=== PATIENT | female | born 1975 | race Caucasian/White ===

== ENCOUNTER 2018-04-21 18:43 | Emergency (ER) | payer OTHER ==
[2018-04-21] MEDS ORDERED: IBUPROFEN 600 MG TABLET PO ONE (18:56)
--- NOTE | 2018-04-21 19:00 | Emergency Department Record ---
History of Present Illness - General Chief Complaint: Knee injury Stated Complaint: RT KNEE INJURY Time Seen by Provider: 04/21/18 18:55 Source: Patient Mode of Arrival: Ambulatory Limitations: No limitations - History of Present Illness Initial Comments: 42 yo female presents with medial right knee pain. She was kick boxing and felt the pain. The right knee was the planted knee. She has pain and a feeling of instability with standing. No history of prior knee surgery or disease. No other injuries. MD Complaint: Knee injury -: Hour(s) Injury: Knee: Right Type of Injury: Other (twisting) Place: Other Severity: Moderate Improves With: Rest Worsens With: Movement, Palpation, Weight bearing Context: Other (kick boxing) Associated Symptoms: Swelling, Able to partially bear weight - Related Data Home Medications Medication Instructions Recorded Confirmed Last Taken Albuterol Sulfate [Ventolin Hfa] 1 - 2 puff IH .EVERY 4-6 HOURS PRN 04/21/18 Unknown Previous Rx's Medication Instructions Recorded Hydrocodone/Acetaminophen [[place] 1 tab PO Q6H PRN #12 tab 04/21/18 5mg/325mg] Allergies Allergy/AdvReac Type Severity Reaction Status Date / Time duloxetine [From Cymbalta] Allergy DIFFICULTY Verified 04/21/18 19:00 BREATHING erythromycin base Allergy DIARRHEA Verified 04/21/18 19:00 lidocaine Allergy HIVES Verified 04/21/18 19:00 Review of Systems Constitutional: Denies: Chills, Fever, Malaise, Weakness Eyes: Denies: Eye discharge ENT: Denies: Congestion, Epistaxis, Throat pain Respiratory: Denies: Cough, Dyspnea, Hemoptysis Cardiovascular: Denies: Chest pain, Palpitations, Syncope Endocrine: Denies: Fatigue Gastrointestinal: Denies: Abdominal pain, Diarrhea, Nausea, Vomiting Genitourinary: Denies: Dysuria, Urgency Musculoskeletal: Reports: As per HPI, Arthralgia, Myalgia. Denies: Back pain, Joint swelling Skin: Denies: Bruising, Change in color Neurological: Reports: Tingling (lateral knee). Denies: Abnormal gait, Numbness , Weakness Psychiatric: Denies: Anxiety Hematological/Lymphatic: Denies: Easy bleeding, Easy bruising Physical Exam - General General Appearance: Alert, Oriented x3, Cooperative, No acute distress Limitations: No limitations - Head Head exam: Atraumatic, Normocephalic, Normal inspection - Eye Eye exam: Normal appearance, PERRL. negative: Conjunctival injection - ENT ENT exam: Normal exam Ear exam: Normal external inspection Nasal Exam: Normal inspection Mouth exam: Normal external inspection - Neck Neck exam: Normal inspection - Respiratory Respiratory exam: Normal lung sounds bilaterally. negative: Respiratory distress - Cardiovascular Cardiovascular Exam: Regular rate, Normal rhythm, Normal heart sounds - Rectal Rectal exam: Deferred - exam: Deferred - Extremities Extremities exam: Normal inspection, Tenderness. negative: Full ROM, Joint swelling Image of Full Body: 1 - medial knee tenderness to palpation, normal inspection, patella intact, lateral knee non tender, stable in the AP direction without laxity - Back Back exam: Reports: Full ROM. Denies: CVA tenderness (R), CVA tenderness (L), Tenderness - Neurological Neurological exam: Alert, Oriented X3 - Psychiatric Psychiatric exam: Normal affect, Normal mood - Skin Skin exam: Dry, Intact, Normal color, Warm Course - Reevaluation(s) Reevaluation #1: 04/21/18 19:49 Knee XR demonstrates an effusion with a questionable medial patellar avulsion She will be immobilized, given crutches and referred to orthopedics 04/21/18 20:28 The patient requested to call her own PCP for an orthopedic referral Disposition Disposition: Discharge Clinical Impression: Patellar fracture Right knee sprain Qualifiers: Encounter type: initial encounter Involved ligament of knee: unspecified ligament Qualified Code(s): S83.91XA - Sprain of unspecified site of right knee , initial encounter Disposition: Home, Self-Care Condition: (1) Good Instructions: Knee Sprain (ED), Patellar Fracture (ED) Additional Instructions: Call your doctor for the next available follow up appointment Return to the ER for a recheck if worse, any new concerns or questions Take the prescriptions provided as directed Review this ER visit and the tests performed with your family doctor Use the crutches and brace for support and comfort Call your doctor for an orthopedic referral Prescriptions: Hydrocodone/Acetaminophen [[place] 5mg/325mg] 1 tab PO Q6H PRN #12 tab PRN Reason: Pain - General Forms: Patient Portal Access Time of Disposition: 19:51 Quality - Quality Measures Quality Measures: N/A - Blood Pressure Screening Does Patient Have Any of the Following: No Blood Pressure Classification: Pre-Hypertensive BP Reading Systolic Measurement: 136 Diastolic Measurement: 81 Screening for High Blood Pressure: < Pre-Hypertensive BP, F/U Documented > [ [id number]] Pre-Hypertensive Follow-up Interventions: Referral to alternative/primary care provider.
[2018-04-21] MEDS ORDERED: HYDROCODONE/APAP 5/325MG TABLET PO ONE (20:01)
--- NOTE | 2018-04-25 14:07 | RADIOLOGY REPORT ---
EXAM: RIGHT KNEE HISTORY: ACUTE INJURY WHILE EXERCISING. DIFFICULTY BEARING WEIGHT. TECHNIQUE: Four views of the right knee were obtained. Comparison: None. FINDINGS: Moderate knee joint effusion. On Merchant view, possible subtle 5 mm calcific fragment adjacent to the medial patella versus overlying artifact. Otherwise, no acute fracture is seen. No dislocation. Nonspecific asymmetric widening of the medial patellofemoral joint space. Suggestion of very minimal tibial femoral marginal osteophytes, otherwise no significant degenerative findings. IMPRESSION: 1. MODERATE JOINT EFFUSION. 2. QUESTIONABLE SUBTLE MEDIAL PATELLAR AVULSION. 3. OTHERWISE, NO ACUTE OSSEOUS FINDINGS. JOB NUMBER: [id number] [facility]
== END 2018-04-21 20:28 | disposition home or self-care (01) ==
LOC: ER 18:43
DX: S83.91XA Sprain of unspecified site of right knee, initial encounter (principal); X50.0XXA Overexertion from strenuous movement or load, initial encounter; Y93.71 Activity, boxing
CPT/HCPCS: 99283